=== PATIENT | male | born 1985 | race Hispanic/Latino ===

== ENCOUNTER 2018-03-14 17:47 | Emergency (ER) | payer OTHER ==
[~2018-03-14] VITALS: Ht 157.5 cm; Wt 65.8 kg
[2018-03-14 17:51] VITALS: BP 127/81
--- NOTE | 2018-03-14 17:57 | ED GI/GU/ABDOMINAL COMPLAINT ---
History of Present Illness General Chief Complaint: Male Genitourinary Problems Stated Complaint: STD CHECK Source: patient Exam Limitations: no limitations Vital Signs & Intake/Output Vital Signs & Intake/Output Vital Signs Date Time Temp Pulse Resp B/P B/P Pulse O2 O2 Flow FiO2 Mean Ox Delivery Rate 03/14 1751 98.6 80 18 127/81 98 Room Air Allergies Coded Allergies: Penicillins (Intermediate, HIVES 03/14/18) Triage Note: PT TO ER FOR STD CHECK. PT'S EX REACHED OUT TO PATIENT STATING SHE IS + FOR HERPES. PT DENIES S/S. Triage Nurses Notes Reviewed? yes Onset: Abrupt Duration: constant Timing: recent history Severity Numbers: 1 Radiation: no radiation HPI: Patient is a 32-year-old male who presents emergency room with concerns of an exposure to herpes simplex where he states that approximately 6 weeks ago he was having sexual intercourse unprotected with a female partner where today she told him that she became positive with herpes simplex and is currently taking medications for her symptoms Patient states that he had sexual intercourse with another female approximately one week ago and is requesting evaluation of herpes simplex. Patient is without symptoms denies any fever chills testicular pain or swelling abdominal pain vesicle bumps OF HIS GENITALS, dysuria hematuria States he's never been diagnosed in the past of herpes and never had symptoms EVER (Baldo Dasilva) Past History Travel History Traveled to [place] past 21 day No Medical History Any Pertinent Medical History? none Surgical History Surgical History: non-contributory Psychosocial History What is your primary language Kinyarwanda Tobacco Use: Quit >30 days ago Family History Hx Contributory? No (Baldo Dasilva) Review of Systems Review of Systems Constitutional: Reports: no symptoms. EENTM: Reports: no symptoms. Respiratory: Reports: no symptoms. Cardiovascular: Reports: no symptoms. GI: Reports: no symptoms. Genitourinary: Reports: no symptoms. Musculoskeletal: Reports: no symptoms. Skin: Reports: no symptoms. Neurological/Psychological: Reports: no symptoms. Hematologic/Endocrine: Reports: no symptoms. Immunologic/Allergic: Reports: no symptoms. All Other Systems: Reviewed and Negative (Baldo Dasilva) Physical Exam Physical Exam General Appearance: alert, awake Head: atraumatic Eyes: Bilateral: normal appearance. Ears, Nose, Throat, Mouth: hearing grossly normal Neck: normal inspection Respiratory: no respiratory distress Gastrointestinal: normal bowel sounds, soft Male Genitals: PATIENT DECLINED Extremities: normal range of motion Neurologic/Psych: no motor/sensory deficits, awake, oriented x 3 Skin: intact, normal color Core Measures ACS in differential dx? No Sepsis Present: No Sepsis Focused Exam Completed? No (Baldo Dasilva) Progress Differential Diagnosis: STD, testicular torsion, ureterolithiasis, urinary retention, urethritis, UTI/pyelo Plan of Care: Microbiology 03/14 1752 URINE ROUT: GC DNA Probe - CAN Cancelled: Cancelled via OE: Error 03/14 1752 URINE ROUT: Chlamydia DNA Probe (PEÑA) - CAN Cancelled: Cancelled via OE: Error Patient currently is asymptomatic and denies any symptoms of STD out break. Patient was given laboratory requisition form for outpatient evaluation of herpes. Patient was also advised to return to emergency room with symptoms worsened Initial ED EKG: none (Baldo Dasilva) Departure Departure Disposition: HOME OR SELF CARE Condition: Stable Clinical Impression Primary Impression: Exposure to STD Referrals: Patient Has No Primary Care Dr (PCP/Family) Additional Instructions: As discussed tomorrow please follow up with the [facility] laboratory to receive blood work Please provide them with the prescription of the laboratory requisition form provided to YOU IN the emergency room. If symptoms worsen or if you develop a new concerning symptom return to emergency room If you are noted be positive please follow with your primary care doctor for further evaluation treatment and please tell your partners of the positive results of the can be treated accordingly Departure Forms: Customer Survey General Discharge Information (Baldo Dasilva) PA/[employer] Co-Sign Statement Statement: ED Attending supervision documentation- I saw and evaluated the patient. I have also reviewed all the pertinent lab results and diagnostic results. I agree with the findings and the plan of care as documented in the PA's/[employer]'s documentation. x I have reviewed the ED Record and agree with the PA's/[employer] documentation. [] Additions or exceptions (if any) to the PAs/[employer]'s note and plan are summarized below: [] (Alpa ANGEL,David)
== END 2018-03-14 18:39 ==
LOC: ERH 17:47
DX: Z20.2 Contact with and (suspected) exposure to infections with a predominantly sexual mode of transmission (principal)
CPT/HCPCS: 87491; 87591